=== PATIENT | female | born 1995 | race Caucasian/White ===

== ENCOUNTER 2017-04-06 02:06 | Inpatient (IN) | payer MEDICAID, OTHER ==
[~2017-04-06] VITALS: Ht 165.1 cm; Wt 75.0 kg
[2017-04-06 02:13] VITALS: BP 139/73; PULSE 95; RESP 23; TEMP 98.1; O2SAT 100
--- NOTE | 2017-04-06 02:15 | PD ---
HPI Chief Complaint: SEIZURE Time Seen by Provider: 02:12 Travel History International Travel<30 days: No Contact w/Intl Traveler<30days: No History of Present Illness HPI SEIZURE WITNESSED BY FAMILY, PT HAS HISTORY BUT NOT ON ANY MEDICATIONS PER FAMILY...[facility] WITNESSED ANOTHER SEIZURE WITHOUT PT CLEARING POST ICTAL, GIVEN AT[facility]AN IM AND BROUGHT INTO DEPARTMENT....GODMOTHER AT BEDSIDE DOES STATE THAT PT IS NOT ON ANY MEDICATIONS AND HAS NO PCP CURRENTLY. PFSH Social History Tobacco Use: Yes Allergies-Medications (Allergen,Severity, Reaction): Coded Allergies: UNOBTAINABLE (Unverified , 04/06/17) Reported Meds & Prescriptions Reported Meds & Active Scripts Active Active Prescriptions or Reported Medications Unobtainable Review of Systems ROS Limitations: Altered Mental Status, Other: (DUE TO POSTICTAL PHASE) Physical Exam Narrative GENERAL: SKIN: Warm and dry. HEAD: Atraumatic. Normocephalic. EYES: Pupils equal and round. No scleral icterus. No injection or drainage. ENT: No nasal bleeding or discharge. Mucous membranes pink and moist. NECK: Trachea midline. No JVD. CARDIOVASCULAR: Regular rate and rhythm. RESPIRATORY: No accessory muscle use. Clear to auscultation. Breath sounds equal bilaterally. GASTROINTESTINAL: Abdomen soft, non-tender, nondistended. Hepatic and splenic margins not palpable. MUSCULOSKELETAL: Extremities without clubbing, cyanosis, or edema. No obvious deformities. NEUROLOGICAL: GCS 12/15 PSYCHIATRIC: Data Data Last Documented VS Vital Signs Date Time Temp Pulse Resp B/P Pulse Ox O2 Delivery O2 Flow Rate FiO2 04/06/17 04:39 91 12 93/43 99 Nasal Cannula 2 04/06/17 02:13 98.1 Orders Complete Blood Count With Diff (04/06/17 02:15) Alcohol (Ethanol) (04/06/17 02:15) Drug Screen, Random Urine (04/06/17 02:15) Ct Brain W/O Iv Contrast(Rout) (04/06/17 ) Blood Glucose (04/06/17 02:15) Ecg Monitoring (04/06/17 02:15) Iv Access Insert/Monitor (04/06/17 02:15) Oximetry (04/06/17 02:15) Comprehensive Metabolic Panel (04/06/17 02:15) Urinalysis - C+S If Indicated (04/06/17 02:15) Sodium Chlor 0.9% 1000 Ml Inj (Ns 1000 M (04/06/17 02:54) Fosphenytoin Inj (Cerebyx Inj) (04/06/17 03:00) Ed Urine Pregnancytest Poc (04/06/17 03:09) Urinary Catheter Insert/Apply (04/06/17 04:36) Sodium Chlor 0.9% 1000 Ml Inj (Ns 1000 M (04/06/17 04:45) Admit To Inpatient (04/06/17 ) Vital Signs (Adult) Q4H (04/06/17 05:14) Activity Oob With Assistance (04/06/17 05:14) [employer] / Telemetry .CONTINUOUS (04/06/17 05:14) Diet Heart Healthy (04/06/17 Breakfast) Sodium Chloride 0.9% Flush (Ns Flush) (04/06/17 05:15) Sodium Chloride 0.9% Flush (Ns Flush) (04/06/17 09:00) Ondansetron Inj (Zofran Inj) (04/06/17 05:15) Basic Metabolic Panel (Bmp) (04/07/17 06:00) Complete Blood Count With Diff (04/07/17 06:00) Case Management Consult (04/06/17 05:14) Naloxone Inj (Narcan Inj) (04/06/17 05:15) Inpatient Certification (04/06/17 ) ^ Seizure Precautions (04/06/17 05:14) Eeg Study (04/06/17 ) Lorazepam Inj (Ativan Inj) (04/06/17 05:30) Admit Order (Ed Use Only) (04/06/17 05:19) Labs Laboratory Tests Test 04/06/17 04/06/17 02:10 02:20 White Blood Count 10.5 TH/MM3 Red Blood Count 4.89 MIL/MM3 Hemoglobin 13.8 GM/DL Hematocrit 40.5 % Mean Corpuscular Volume 82.7 FL Mean Corpuscular Hemoglobin 28.3 PG Mean Corpuscular Hemoglobin 34.2 % Concent Red Cell Distribution Width 14.8 % Platelet Count 245 TH/MM3 Mean Platelet Volume 7.8 FL Neutrophils (%) (Auto) 51.6 % Lymphocytes (%) (Auto) 35.7 % Monocytes (%) (Auto) 10.0 % Eosinophils (%) (Auto) 2.0 % Basophils (%) (Auto) 0.7 % Neutrophils # (Auto) 5.4 TH/MM3 Lymphocytes # (Auto) 3.7 TH/MM3 Monocytes # (Auto) 1.0 TH/MM3 Eosinophils # (Auto) 0.2 TH/MM3 Basophils # (Auto) 0.1 TH/MM3 CBC Comment DIFF FINAL Differential Comment Sodium Level 143 MEQ/L Potassium Level 3.2 MEQ/L Chloride Level 107 MEQ/L Carbon Dioxide Level 27.1 MEQ/L Anion Gap 9 MEQ/L Blood Urea Nitrogen 4 MG/DL Creatinine 0.68 MG/DL Estimat Glomerular Filtration 110 ML/MIN Rate Random Glucose 101 MG/DL Calcium Level 8.7 MG/DL Total Bilirubin 0.4 MG/DL Aspartate Amino Transf 31 U/L (AST/SGOT) Alanine Aminotransferase 56 U/L (ALT/SGPT) Alkaline Phosphatase 152 U/L Total Protein 7.7 GM/DL Albumin 3.8 GM/DL Ethyl Alcohol Level 67 MG/DL Urine Color LIGHT-YELLOW Urine Turbidity CLEAR Urine pH 5.5 Urine Specific [place] 1.004 Urine Protein NEG mg/dL Urine Glucose (UA) NEG mg/dL Urine Ketones NEG mg/dL Urine Occult Blood NEG Urine Nitrite NEG Urine Bilirubin NEG Urine Urobilinogen LESS THAN 2.0 MG/DL Urine Leukocyte Esterase NEG Urine RBC LESS THAN 1 /hpf Urine WBC LESS THAN 1 /hpf Microscopic Urinalysis Comment CATH-CULT NOT IND Urine Opiates Screen NEG Urine Barbiturates Screen NEG Urine Amphetamines Screen POS Urine Benzodiazepines Screen NEG Urine Cocaine Screen NEG Urine Cannabinoids Screen POS MDM Medical Decision Making Medical Screen Exam Complete: Yes Emergency Medical Condition: Yes Medical Record Reviewed: Yes Interpretation(s) NSR 99, NL INTERVALS, LVH AND PALMER BUT NO STEMI PATTERN NOTED Differential Diagnosis ICH V NONCOMPLIANCE SEIZURE V TOX RELATED SEIZURE V ELECTROLYTE ABNL Narrative Course HISTORICALLY PATIENT MEETS CRITERIA OF STATUS BY HAVING 3 SEIZURES WITHOUT EVER COMING OUT OF POSTICTAL PHASE....IN ED PATIENT HAS NOT HAD REPEAT EPISODES (EMS GAVE ATIVAN, I GAVE CEREBYX) WELL NS HYDRATION TO DECREASE TACHYCARDIA. CT HEAD DID NOT SHOW ANY ICH. PATIENT AT 0500 IS MORE CONVERSANT AND A/O X4, NO LONGER POSTICTAL BUT GROGGY FROM BZD..WILL OBS TO HEPAS Diagnosis Primary Impression: STATUS EPILEPTICUS Additional Impression: POLYSUBSTANCE USE Admitting Information Admitting Physician Requests: Observation Scripts Unable to Obtain Active Prescriptions or Reported Meds Condition: Stable Jaime Marroquin MD Apr 06, 2017 02:15
[2017-04-06 02:18] VITALS: RESP 23; O2SAT 100
[2017-04-06 02:30] LABS: AUTOMATED NEUTROPHIL # 5.4 TH/MM3 (1.8-7.7); BASOPHIL # 0.1 TH/MM3 (0-0.2); BASOPHIL % 0.7 % (0.0-2.0); EOSINOPHIL # 0.2 TH/MM3 (0-0.4); HEMATOCRIT 40.5 % (35.0-46.0); HEMO FLAGS DIFF FINAL; LYMPH % 35.7 % (9.0-44.0); LYMPHOCYTE # 3.7 TH/MM3 (1.0-4.8); MEAN CELL VOLUME 82.7 FL (80.0-100.0); MEAN CORPUSCULAR HEMOGLOBIN 28.3 PG (27.0-34.0); MEAN CORPUSCULAR HGB CONC 34.2 % (32.0-36.0); NEUT % 51.6 % (16.0-70.0); PLATELET COUNT 245 TH/MM3 (150-450); RED BLOOD COUNT 4.89 MIL/MM3 (4.00-5.30); RED CELL DISTRIBUTION WIDTH 14.8 % (11.6-17.2); WHITE BLOOD COUNT 10.5 TH/MM3 (4.0-11.0)
[2017-04-06 02:33] LABS: BLOOD, URINE NEG (NEG); GLUCOSE,URINE NEG (NEG); KETONE, URINE NEG (NEG); NITRITE,URINE NEG (NEG); PH, URINE 5.5 (5.0-8.5); URINE COLOR LIGHT-YELLOW (YELLW/STRAW)
[2017-04-06 02:34] LABS: COMMENT (UR) CATH-CULT NOT IND; CULTURE IF INDICATED CATH CULTURE NOT IND
[2017-04-06 02:39] LABS: AMPHETAMINE, URINE POS (NEG); BARBITURATES, URINE NEG (NEG); COCAINE, URINE NEG (NEG)
[2017-04-06] MEDS ORDERED: SODIUM CHLOR 0.9% 1000 ML INJ 1,000 ML IV SCH (02:54)
[2017-04-06 02:56] LABS: ALT (GPT) 56 U/L (9-42); ANION GAP 9 MEQ/L (5-15); AST (GOT) 31 U/L (16-38); BICARBONATE 27.1 MEQ/L (21.0-32.0); BLOOD UREA NITROGEN 4 MG/DL (7-18); CHLORIDE 107 MEQ/L (98-107); GLOMERULAR FILTRATION RATE 110 ML/MIN (>89); POTASSIUM 3.2 MEQ/L (3.5-5.1); SODIUM (NA) 143 MEQ/L (136-145)
[2017-04-06 02:58] LABS: ALKALINE PHOSPHATASE 152 U/L (45-117)
[2017-04-06] MEDS ORDERED: FOSPHENYTOIN INJ 1,000 MGPE in SODIUM CHLORIDE 0.9% INJ 50 ML IV ONE (03:00)
[2017-04-06 03:06] LABS: TOTAL BILIRUBIN ADULT 0.4 MG/DL (0.2-1.0)
[2017-04-06 04:39] VITALS: BP 93/43; PULSE 91; RESP 12; O2SAT 99
--- NOTE | 2017-04-06 04:44 | RADRPT ---
EXAM DATE/TIME: 04/06/2017 03:41 [place] COMPARISON: No previous studies available for comparison. INDICATIONS : Seizures. RADIATION DOSE: 34.23 CTDIvol (mGy) MEDICAL HISTORY : None SURGICAL HISTORY : None. ENCOUNTER: Initial ACUITY: 1 day PAIN SCALE: 6/10 LOCATION: cranial TECHNIQUE: Multiple contiguous axial images were obtained of the head. Using automated exposure control and adj ustment of the mA and/or kV according to patient size, radiation dose was kept as low as reasonably a chievable to obtain optimal diagnostic quality images. DICOM format image data is available electro nically for review and comparison. FINDINGS: The patient's head is canted in the gantry. CEREBRUM: The ventricles are normal for age. No evidence of midline shift, mass lesion, hemorrhage or acute in farction. No extra-axial fluid collections are seen. POSTERIOR FOSSA: The cerebellum and brainstem are intact. The 4th ventricle is midline. The cerebellopontine angle i s unremarkable. EXTRACRANIAL: The visualized portion of the orbits is intact. SKULL: The calvaria is intact. No evidence of skull fracture. CONCLUSION: Negative noncontrast CT brain. Darrell Vega MD on April 06, 2017 at 4:42 Board Certified Radiologist. This report was verified electronically.
[2017-04-06] MEDS ORDERED: SODIUM CHLOR 0.9% 1000 ML INJ 1,000 ML IV ONE (04:45)
[2017-04-06] MEDS ORDERED: NALOXONE HCL 0.4 MG/ML AMP IV PRN (05:15)
[2017-04-06] MEDS ORDERED: SODIUM CHLORIDE 0.9% FLUSH 10 ML FLUSH IV FLUSH PRN (05:15)
[2017-04-06] MEDS ORDERED: ONDANSETRON HCL 4 MG/2 ML VIAL IVP PRN (05:15)
[2017-04-06] MEDS ORDERED: LORazepam 2 MG/ML VIAL IV PUSH PRN (05:30)
[2017-04-06 05:32] VITALS: BP 99/55; PULSE 92; RESP 14; O2SAT 100
--- NOTE | 2017-04-06 06:20 | HHI.HP ---
[facility] No Primary Care Physician Admission Diagnosis MULTIPLE SEIZURES Diagnoses: Chief Complaint: Seizures Travel History International Travel<30 Days: No Contact w/Intl Traveler <30 Da: No Traveled to Known Affected Are: No History of Present Illness Written by Maya Bruno, acting as scribe for Dr. Vazquez on 04/06/17 at 06:20. The patient is seen in the ER with her Godmother at the bedside. She is lethargic. She states she doesn't remember what happened. Denies recent fever, n/v/d, SOB, chest pain, dizziness, or syncope. She is resistant to answering questions and to physical examination. History from Godmother: the patient was standing and talking to Godmother's boyfriend and just dropped to floor in seizure and Godmother was unable to wake her up afterward - tonic clonic seizure. She reports that the patient also had two seizures in ambulance. She is unsure of patient's past medical history - knows she has a history of seizures, states she takes no medications for seizures, does not know at what age seizures started. Patient would not answer any of these questions. Review of Systems ROS Limitations: Altered Mental Status, Uncooperative ROS limited by patient lethargy and lack of cooperation Past Family Social History Past Medical History Seizure disorder Denies hypertension, diabetes . Past Surgical History No known surgeries . Reported Medications Reported Meds & Active Scripts Active Active Prescriptions or Reported Medications Unobtainable . Allergies: Coded Allergies: UNOBTAINABLE (Unverified , 04/06/17) Active Ordered Medications Current Medications Sodium Chloride 1,000 ml @ 1,000 mls/hr Q1H IV Last administered on 04/06/17 03:13; Start 04/06/17 at 02:54; Stop 04/06/17 at 03:53; Status DC Fosphenytoin Sodium 1000 mgpe/ Sodium Chloride 70 ml @ 280 mls/hr ONCE ONCE IV Last administered on 04/06/17 03:33; Start 04/06/17 at 03:00; Stop at 03:14; Status DC Sodium Chloride (NS 1000 ml Inj) 1,000 ml @ 999 mls/hr BOLUS ONCE IV Last administered on 04/06/17t 04:45; Start 04/06/17 at 04:45; Stop 04/06/17 at 05:45 ; Status DC Sodium Chloride (NS Flush) 2 ml UNSCH PRN IV FLUSH FLUSH AFTER USING IV ACCESS ; Start 04/06/17 at 05:15 Sodium Chloride (NS Flush) 2 ml BID IV FLUSH ; Start 04/06/17 at 09:00 Ondansetron HCl (Zofran Inj) 4 mg Q6H PRN IVP NAUSEA OR VOMITING; Start at 05:15 Naloxone HCl (Narcan Inj) 0.4 mg UNSCH PRN IV SEE LABEL COMMENTS; Start at 05:15 Lorazepam (Ativan Inj) 1 mg Q15M PRN IV PUSH seizures; Start 04/06/17 at 05:30 . Family History unable to obtain due to patient lethargy - Godmother at bedside is not a relative and is not familiar with patient's medical history . Social History Tobacco: smokes cigarettes Alcohol: occasional use Illicit Drugs: denies Mother of a two month-old baby at home; lives independently with her boyfriend. . Physical Exam Vital Signs Vital Signs Date Time Temp Pulse Resp B/P Pulse Ox O2 Delivery O2 Flow Rate FiO2 04/06/17 05:32 92 14 99/55 100 Nasal Cannula 2 04/06/17 04:39 91 12 93/43 99 Nasal Cannula 2 04/06/17 02:18 23 100 Non-Rebreather 15 04/06/17 02:15 95 23 100 Non-Rebreather 15 04/06/17 02:13 98.1 95 23 139/73 100 Physical Exam GENERAL: This is an overweight female patient, lethargic, intermittently uncooperative, and snoring loudly while asleep. SKIN: No rashes. Cool and dry. HEAD: Atraumatic. Normocephalic. EYES: No scleral icterus. No injection or drainage. ENT: Nose without bleeding, purulent drainage. NECK: Trachea midline. No JVD. CARDIOVASCULAR: Regular rate and rhythm without murmurs, gallops, or rubs. RESPIRATORY: Clear to auscultation. Breath sounds equal bilaterally. No wheezes , rales, or rhonchi. Snoring loudly during sleep. GASTROINTESTINAL: Abdomen soft, non-tender, nondistended. No guarding. MUSCULOSKELETAL: Extremities without clubbing, cyanosis, or edema. NEUROLOGICAL: Lethargic, uncooperative at most times. . Laboratory Laboratory Tests Test 04/06/17 04/06/17 02:10 02:20 White Blood Count 10.5 Red Blood Count 4.89 Hemoglobin 13.8 Hematocrit 40.5 Mean Corpuscular Volume 82.7 Mean Corpuscular Hemoglobin 28.3 Mean Corpuscular Hemoglobin 34.2 Concent Red Cell Distribution Width 14.8 Platelet Count 245 Mean Platelet Volume 7.8 Neutrophils (%) (Auto) 51.6 Lymphocytes (%) (Auto) 35.7 Monocytes (%) (Auto) 10.0 Eosinophils (%) (Auto) 2.0 Basophils (%) (Auto) 0.7 Neutrophils # (Auto) 5.4 Lymphocytes # (Auto) 3.7 Monocytes # (Auto) 1.0 Eosinophils # (Auto) 0.2 Basophils # (Auto) 0.1 CBC Comment DIFF FINAL Differential Comment Sodium Level 143 Potassium Level 3.2 Chloride Level 107 Carbon Dioxide Level 27.1 Anion Gap 9 Blood Urea Nitrogen 4 Creatinine 0.68 Estimat Glomerular Filtration 110 Rate Random Glucose 101 Calcium Level 8.7 Total Bilirubin 0.4 Aspartate Amino Transf 31 (AST/SGOT) Alanine Aminotransferase 56 (ALT/SGPT) Alkaline Phosphatase 152 Total Protein 7.7 Albumin 3.8 Ethyl Alcohol Level 67 Urine Color LIGHT-YELLOW Urine Turbidity CLEAR Urine pH 5.5 Urine Specific [place] 1.004 Urine Protein NEG Urine Glucose (UA) NEG Urine Ketones NEG Urine Occult Blood NEG Urine Nitrite NEG Urine Bilirubin NEG Urine Urobilinogen LESS THAN 2.0 Urine Leukocyte Esterase NEG Urine RBC LESS THAN 1 Urine WBC LESS THAN 1 Microscopic Urinalysis Comment CATH-CULT NOT IND Urine Opiates Screen NEG Urine Barbiturates Screen NEG Urine Amphetamines Screen POS Urine Benzodiazepines Screen NEG Urine Cocaine Screen NEG Urine Cannabinoids Screen POS Result Diagram: 04/06/17 0210 04/06/17 0210 Imaging Last Impressions Head CT 04/06/17 0000 Signed Impressions: Service Date/Time: Thursday, April 06, 2017 03:41 - CONCLUSION: Negative noncontrast CT brain. Darrell Vega MD . Assessment and Plan Problem List: (1) Status epilepticus ICD Code: G40.901 Status: Acute (2) Seizures ICD Code: R56.9 Status: Acute Assessment and Plan Seizures/status epilepticus - Ativan 1 mg IV q15min PRN seizures - Patient not on antiepileptic drugs as an outpatient - Neurology consultation - assistance appreciated - EEG - will need additional medical history once patient is more alert - will place in ICU for close monitoring at least for the day given status epilepticus and post-ictal status Hypokalemia - Potassium 3.2 on admission - IV potassium replacement - recheck BMP and follow trends in potassium - replace potassium as needed - continuous cardiac telemetry to monitor for arrhythmia Obstructive sleep apnea suspected - Discussed with patient's Mother at bedside necessity of outpatient follow-up DVT prophylaxis SCDs/TEDs . Discussed Condition With ER physician, [facility] Certification 2 Midnight Certification Type: Admission for Inpatient Services Order for Inpatient Services The services are ordered in accordance with Medicare regulations or non- Medicare payer requirements, as applicable. In the case of services not specified as inpatient-only, they are appropriately provided as inpatient services in accordance with the 2-midnight benchmark. Estimated LOS (days): 3 days is the estimated time the patient will need to remain in the hospital, assuming treatment plan goals are met and no additional complications. Post-Hospital Plan: Home Maya Bruno Apr 06, 2017 06:20
[2017-04-06 06:23] VITALS: BP 100/55; PULSE 87; RESP 14; O2SAT 99
[2017-04-06] MEDS ORDERED: POTASSIUM CHLOR 20 MEQ PREMIX 100 ML IV SCH (06:30)
[2017-04-06] MEDS ORDERED: SODIUM CHLORIDE 0.9% FLUSH 10 ML FLUSH IV FLUSH SCH (09:00)
--- NOTE | 2017-04-06 23:12 | EKG ---
Date Performed: 04/06/2017 Time Performed: 02:10:09 PTAGE: 21 years EKG: Sinus rhythm NORMAL ECG NO PREVIOUS TRACING DOCTOR: Tarik Benson Interpretating Date/Time 04/06/2017 23:10:03
== END 2017-04-06 10:56 | disposition left against medical advice (07) | DRG 101 ==
LOC: NEPC 02:06 → OBSVTOIN 05:22 → NEDA 05:22
PROVIDERS: ADMIT Family Medicine; ATTEND Family Medicine
DX: G40.901 Epilepsy, unspecified, not intractable, with status epilepticus (principal); E87.6 Hypokalemia; F17.210 Nicotine dependence, cigarettes, uncomplicated; G47.33 Obstructive sleep apnea (adult) (pediatric)
CPT/HCPCS: 70450; 80053; 80307; 81001; 84703; 85025; 93005; J3480; J7030; Q2009